=== PATIENT | female | born 1950 | race Caucasian/White ===

== ENCOUNTER 2023-10-06 17:47 | Inpatient (IN) | payer OTHER, SELFPAY ==
[2023-10-06 16:27] VITALS: BP 203/131
[2023-10-06 16:39] VITALS: BP 230/114
[2023-10-06 16:56] LABS: % Basophils 0.4 % (0-2); % Eosinophils 1.2 % (0-6); % Immature Granulocytes 0.5 % (0-0.5); % Lymphocytes 13.5 % (20.5-51.1); % Neutrophils 78.4 % (42.2-75.2); Absolute Eosinophils 0.1 10^3/uL (0-0.7); Absolute Immature Granulocytes 0.1 10^3/uL (0-0.05); Absolute Lymphocytes 1.4 10^3/uL (1.2-3.4); Absolute Monocytes 0.6 10^3/uL (0.1-0.6); Absolute Neutrophils 8.3 10^3/uL (1.4-6.5); Hematocrit 39.8 % (37.0-47.0); Hemoglobin 13.8 g/dL (12.0-16.0); Mean Corp Hgb Conc. 34.7 g/dL (33.0-37.0); Mean Corpuscular Hgb 29.2 pg (27.0-31.0); Mean Corpuscular Volume 84.1 fL (81.0-99.0); Mean Platelet Volume 9.6 fL (7.4-10.4); Nucleated Red Blood Cells % 0 %; Platelet Count 252 10^3/uL (130-400); Red Blood Cell Count 4.73 10^6/uL (4.20-5.40); Red Cell Dist. Width 13.1 % (11.5-14.5); White Blood Cell Count 10.6 10^3/uL (4.8-10.8)
--- NOTE | 2023-10-06 16:57 | ED.CVA ---
History of Present Illness
General
Chief Complaint: CVA/TIA Symptoms
Source: patient and spouse
Exam Limitations: none
Time Seen by Provider: 10/06/23 16:46
Onset of Stroke Symptoms
Onset of symptoms known: Yes
Date of onset of symptoms: 10/06/23
Time of onset of symptoms: 04:30
Travel History
Have you had any contact with someone who has COVID-19?: No
Do you have any symptoms of coronavirus? Fever > 100 degrees, chills, cough, shortness of breath, sore throat, loss of taste or smell, muscle aches, or headache?: No
History of Present Illness
History of Present Illness:
Patient noted incoordination to the right arm and leg and mild slurred speech at 4:30 AM. Persistent symptoms since then
Past History
Past History
ED Past Medical History: HTN and NIDDM
ED Past Surgical History: Orthopedic
Review of Systems
Review of Systems
All Other Systems: Not applicable
Constitutional: Denies fever
Respiratory: Reports no symptoms
Cardiac: Reports no symptoms
Phy Exam
Physical Exam
Physical Exam:
GENERAL: Alert and oriented in no apparent distress
EYE: Orbits normal.
NECK: Supple, no carotid bruit
ENT: Pharynx without erythema
CARDIAC: Regular rate and rhythm without any obvious murmurs.
LUNGS: Clear breath sounds,normal
ABDOMEN: Soft, without focal tenderness or distention
NEUROLOGICAL: Alert and oriented , minimal slurred speech although patient is a dentulous. No aphasia. Poor [id number] and poor [id number] on the right. No weakness. Light touch intact. Eye confrontation normal.
SKIN: Warm and dry, no rash or lesion, no discoloration, skin intact.
MUSCULOSKELETAL: No edema,no deformity.Good color
PSYCH: Normal and appropriate interaction.
Scores
NIH Stroke Score
Level of Consciousness: 0 - Alert
LOC Questions: 0-Answers both correctly
LOC Commands: 0-Performs both correctly
Best Horizontal Gaze: 0-Normal
Visual Rhodes: 0=Normal, no visual loss
Facial Palsy: 0=Normal, symmetrical
Motor - Right Arm: 0=No drift 10 seconds
Motor - Left Arm: 0=No drift 10 seconds
Motor - Right Le-No drift 5 seconds
Motor - Left Le-No drift 5 seconds
Limb Ataxia: 2-Present in two limbs
Sensation: 0-Normal
Best Language: 0-No aphasia
Dysarthria: 1-Mild slurring
Extinction and Inattention: 0-No abnormality
Total Score:: 3
Course
Orders/Labs/Results
Orders:
Orders
10/06/23 16:46
Complete Blood Count/With Diff Urgent
Comprehensive Metabolic Panel Urgent
10/06/23 16:54
Electrocardiogram (*1) Stat
Reason for Study: Other
Other Reason for Exam: neuro symptoms
CT Head W/o Iv Contrast Urgent
Comment:
Reason For Exam: 12 hours right sided incoordination
Cardiac Monitoring- Treatment ONCE
EKG- Treatment ONCE
10/06/23 17:22
Aspirin Chewable [Low Strength Aspirin] 324 mg PO NOW STA
Clopidogrel Bisulfate [Plavix] 75 mg PO NOW STA
10/06/23 17:38
Admit/Transfer Patient As Directed
Co-Sign Provider:
Level of Care: Inpatient admission
Assign to:: Telemetry
Physician / Group: bubba
Diagnosis: cva
Reason for Telemetry: Arrhythmia
Date to Stop Telemetry: 10/09/23
Time to Stop Telemetry: 11:00
Reason for Hospitalization: cva
Expected length of stay greater than two midnights?: Yes
ELOS- Estimated Length of Stay in days: 2
I certify the patient meets the requirements for IP care: Yes
10/06/23 17:39
Code Status As Directed
Resuscitation Status: Full Code
10/06/23 17:45
Enalaprilat [Vasotec] 0.625 mg IV Q6HPRN PRN
10/09/23 11:00
DC Protocol for Telemetry ONCE
Abnormal Lab Results
10/06/23
16:46
Abs Immat Gran (auto) 0.1 H 10^3/uL
(0-0.05)
Absolute Neuts (auto) 8.3 H 10^3/uL
(1.4-6.5)
Neutrophils % 78.4 H %
(42.2-75.2)
Lymphocytes % 13.5 L %
(20.5-51.1)
Sodium 133 L mmol/L
(135-145)
Chloride 94 L mmol/L
(98-107)
BUN 24 H mg/dl
(7-17)
Glucose 154 H mg/dl
(70-99)
Calcium 10.4 H mg/dl
(8.4-10.2)
AST 43 H U/L
(14-36)
10/06/23 16:46
10/06/23 16:46
Vital Signs
Initial and Last Documented VS:
Initial Vital Signs
Temp Pulse Resp BP Pulse Ox
99.1 F 76 18 203/131 98
10/06/23 16:27 10/06/23 16:27 10/06/23 16:27 10/06/23 16:27 10/06/23 16:27
Last Documented Vital Signs
Temp Pulse Resp BP Pulse Ox
99.1 F 74 15 193/87 96
10/06/23 16:27 10/06/23 18:30 10/06/23 18:30 10/06/23 17:47 10/06/23 18:30
*Pulse Oximetry
Patient hypoxic: no
*EKG
Interpreted by ED Provider?: Yes
Interpretation: abnormal
Comparison EKG: no changes
Heart Rate: 74
Rate: normal
Rhythm: sinus
[place]: normal axis
Interval: normal interval
QRS Pattern: left vent hypertrophy
Ischemia: non-specific ST changes
*Account Relationship Manager Interpretation
Rate: normal
Interpretation: normal
Heart Rate: 76
Rhythm: sinus
*Critical Care Note
Total Time (30-74mins, 75-104mins- exclusive of procedures): Not Applicable
Update Note
Update Note:
Discussed with neurology. NIH is 3. Clearly beyond the window for thrombolytics. With low NIH and timing no indication for CTA or thrombectomy. Aspirin Plavix per neurology and admit
ED Attending Note
-
Portions of this chart may have been created with voice recognition software.� Occasional wrong word or��sound alike� substitutions may have occurred due to the inherent limitations of voice recognition software.
Discharge Plan
Departure
Patient Disposition: Admit
Date of Disposition: 10/06/23
Time of Disposition: 17:21
Presentation/result/management discussed w/ accepting MD/DO: Neurology
Discharge Problem:
Subacute CVA, Hypertensive urgency
Interventions
Interventions:
*Risk Screen - Suicide Last Done: 10/06/23 16:27
*General Assessment Last Done: 10/06/23 16:27
*Neglect/Abuse Screening Last Done: 10/06/23 16:27
ED- Pulmonary Assessment Last Done: 10/06/23 17:01
ED- Neurological Assessment Last Done: 10/06/23 17:01
ED- Cardiac Assessment Last Done: 10/06/23 17:01
ED Swallowing Screen Last Done: 10/06/23 17:01
[2023-10-06 17:14] LABS: ALT (SGPT) 33 U/L (0-35); AST (SGOT) 43 U/L (14-36); Albumin 4.9 g/dl (3.5-5.0); Alkaline Phosphatase 83 U/L (38-126); Blood Urea Nitrogen 24 mg/dl (7-17); Calcium 10.4 mg/dl (8.4-10.2); Carbon Dioxide 28 mmol/L (22-30); Chloride 94 mmol/L (98-107); Glucose 154 mg/dl (70-99); Potassium 4.1 mmol/L (3.5-5.1); Sodium 133 mmol/L (135-145); Total Bilirubin 0.9 mg/dl (0.2-1.3); Total Protein 7.6 g/dl (6.3-8.2); eGFR > 60.00
[2023-10-06] MEDS: LOW STRENGTH ASPIRIN 324 MG PO (17:29)
[2023-10-06] MEDS: PLAVIX 75 MG PO (17:29)
[2023-10-06 17:47] VITALS: BP 193/87
--- NOTE | 2023-10-06 17:47 | HPS.HSE ---
Family Physician
-
Family Physician: NOT KNOW UNKNOWN - PT DOES
Chief Complaint
-
right sided weakness
History of Present Illness
73-year-old female past medical history of hypertension, diabetes, migraine with aura, osteoarthritis, osteoporosis, ADHD, alopecia, hepatitis C status posttreatment, remote tobacco use, presenting with right foot drop, right hand weakness and
numbness and difficulty speaking with some confusion around 4 AM this morning. Patient had appointment with primary care physician later who recommended she come to the emergency room.
Since then the symptoms have improved somewhat although she continues to have some weakness and numbness in the right hand. She denies any headache, blurry vision, vertigo, facial droop. She denies any history of strokes. She denies any cardiac
history.
Patient is apparently had blood pressure in the 180-200 systolic for years despite taking blood pressure medication.
Denies smoking alcohol or any drugs.
Medical History
Past Medical History
Past Medical History: Reports Other (hypertension, diabetes, migraine with aura, osteoarthritis, osteoporosis, ADHD, alopecia, hepatitis C status posttreatment, remote tobacco use,)
Past Surgical History: Reports Other (Left total knee arthroplasty,)
Social History
Tobacco: Non-smoker
Alcohol: None
Drug: None
Family History
Family History: Not pertinent
Allergies / Home Medications
Allergies reflects when Allergies were last updated in [facility].
Home Medications with original date entered in [facility]
Allergy/Medication List:
Allergies
Allergy/AdvReac Type Severity Reaction Status Date / Time
acetaminophen [From Tylenol] Allergy Nausea Verified 06/02/18 13:32
alendronate sodium Allergy dental Verified 06/02/18 13:32
problems
Home Medications
calcium citrate 315 mg calcium-vitamin D3 6.25 mcg (250 unit) tablet (Citracal + Vitamin D Maximum) 1,200 mg PO HS 04/22/17
multivitamin with folic acid 400 mcg tablet (Tab-A-Bryant) 1 tab PO Q48H 04/22/17
aspirin 325 mg tablet,delayed release 650 mg PO DAILY PRN mild pain 10/06/23
latanoprost 0.005 % eye drops 1 drp BOTH EYES HS 10/06/23
prochlorperazine maleate 10 mg tablet 10 mg PO TID PRN nausea 10/06/23
propranolol 120 mg capsule,24 hr,extended release 120 mg PO HS 10/06/23
Review of Systems
-
History Source: Patient
A 12 point ROS was completed and negative except as noted: Yes
Constitutional: Reports No Symptoms
EENT: Reports No Symptoms
Respiratory: Reports No Symptoms
Cardiac: Reports No Symptoms
Abdomen/GI: Reports No Symptoms
: Reports No Symptoms
Musculoskeletal: Reports No Symptoms
Skin: Reports No Symptoms
Neurological: Reports See HPI
Endocrine: Reports No Symptoms
Hematologic/Lymphatic: Reports No Symptoms
Psych: Reports No Symptoms
Physical Exam
Vital Signs
Vital Signs
Temp Pulse Resp BP Pulse Ox
99.1 F 81 14 230/114 95
10/06/23 16:27 10/06/23 17:30 10/06/23 17:30 10/06/23 16:39 10/06/23 17:30
Physical Exam
General: Well Developed, Well Nourished and No Apparent Distress
HEENT: NormoCephalic, Moist mucous membranes and Atraumatic
Respiratory: Clear
Cardiac: S1/S2 and Regular Rhythm; No Murmur or Rub
GI: Soft, Non Tender, Non Distended and Normal Bowel Sounds; No Organomegaly
Rectal: Deferred by Provider
Musculoskeletal: No Clubbing, No Cyanosis and No Edema
Skin: No Rash
Neuro: Nonfocal/grossly intact
Laboratory Results
-
10/06/23 16:46
10/06/23 16:46
Laboratory Results
Total Bilirubin 0.9 mg/dl (0.2-1.3) 10/06/23 16:46
AST 43 U/L (14-36) H 10/06/23 16:46
ALT 33 U/L (0-35) 10/06/23 16:46
Alkaline Phosphatase 83 U/L (38-126) 10/06/23 16:46
Data Reviewed
-
Lab Data: Labs Reviewed by me
Old Records: Reviewed
Impression/Plan
-
IMPRESSION:
PLAN:
# Acute CVA secondary to untreated hypertension
-NIH of 3
-CT head shows 2 small foci of suspect ischemic left dominant left internal capsule, age-indeterminate but potentially acute/subacute
-Aspirin and Plavix
-Check MRI/MRA head and neck
-Check A1c and lipid panel
-Start atorvastatin 40 mg
-Permissive hypertension for 24 hours until tomorrow morning to keep blood pressure below 220/120
-Check echo
-Neurology consulted
-PT/OT/speech therapy
# Hypertensive urgency
-Systolic blood pressure of 230/114
-Permissive hypertension but require slight reduction in blood pressure, IV enalapril as needed
-EKG shows normal sinus rhythm, LVH
-Continue propranolol
Type 2 diabetes
History of migraines
History of vertigo
Osteoarthritis
Osteoporosis
-Continue calcium, vitamin D
ADHD
Alopecia
History of hepatitis C status posttreatment
Remote tobacco use
Full code
DVT prophylaxis�SCDs
Diabetic diet
[2023-10-06 20:47] VITALS: BP 227/112
[2023-10-06 22:00] VITALS: BP 199/93
[2023-10-06 22:13] VITALS: BMI 26.5
[2023-10-06] MEDS: LIPITOR 40 MG PO (22:43)
[2023-10-06] MEDS: INDERAL LA 120 MG PO (22:43)
[2023-10-06] MEDS: THERAGRAN 1 TABLET PO (22:43)
[2023-10-06] MEDS: XALATAN OPHTHALMIC SOLUTION 1 DROP BOTH EYES (22:44)
[2023-10-06 23:00] VITALS: BP 196/97
[2023-10-07] VITALS (11 sets, daily range): BP systolic 131–229; BP diastolic 70–128; PULSE 61; O2SAT 96; BMI 23.3
[2023-10-07] MEDS: MELATONIN 5 MG PO ×2 (00:15→20:27)
[2023-10-07] MEDS: VASOTEC 0.625 MG IV (01:54)
[2023-10-07 07:31] LABS: % Basophils 0.3 % (0-2); % Eosinophils 1.8 % (0-6); % Immature Granulocytes 0.3 % (0-0.5); % Lymphocytes 23.5 % (20.5-51.1); % Neutrophils 65.1 % (42.2-75.2); Absolute Eosinophils 0.1 10^3/uL (0-0.7); Absolute Lymphocytes 1.6 10^3/uL (1.2-3.4); Absolute Monocytes 0.6 10^3/uL (0.1-0.6); Absolute Neutrophils 4.3 10^3/uL (1.4-6.5); Hematocrit 37.3 % (37.0-47.0); Hemoglobin 13.1 g/dL (12.0-16.0); Mean Corp Hgb Conc. 35.1 g/dL (33.0-37.0); Mean Corpuscular Hgb 29.9 pg (27.0-31.0); Mean Corpuscular Volume 85.2 fL (81.0-99.0); Nucleated Red Blood Cells % 0 %; Red Blood Cell Count 4.38 10^6/uL (4.20-5.40); White Blood Cell Count 6.6 10^3/uL (4.8-10.8)
[2023-10-07 07:44] LABS: Blood Urea Nitrogen 25 mg/dl (7-17); Carbon Dioxide 29 mmol/L (22-30); Chloride 96 mmol/L (98-107); Estimated Creatinine Clearance 51 ml/min; Glucose 114 mg/dl (70-99); HDL Cholesterol 88 mg/dl; LDL Cholesterol, Calculated 138 mg/dl; Potassium 3.9 mmol/L (3.5-5.1); Sodium 134 mmol/L (135-145); Total Cholesterol 238 mg/dl (50-199); Triglyceride 62 mg/dl (10-149); Very Low Density Lipoprotein 12 mg/dl (0-30); eGFR > 60.00
[2023-10-07] MEDS: LOW STRENGTH ASPIRIN 81 MG PO (08:00)
[2023-10-07] MEDS: PLAVIX 75 MG PO (08:00)
[2023-10-07 08:27] LABS: Platelet Count 191 10^3/uL (130-400)
--- NOTE | 2023-10-07 11:08 | W.PN.HOSP.TC ---
Today's Communication/Plan
-
await MRI
monitor BP
Monitor on tele
start metformin
asa/plavix
Assessment / Plan
Assessment / Plan
# Acute/subacute CVA secondary to untreated hypertension
-CT head shows 2 small foci of suspect ischemic left dominant left internal capsule, age-indeterminate but potentially acute/subacute
-Aspirin and Plavix
-Check MRI/MRA head and neck
-TC at 238 with elevated LDL-Started on statin
-A1C at 7 and start metformin.
-Start atorvastatin 40 mg
-s/p Permissive hypertension and BP trended down
-Check echo
-Neurology consulted
-PT/OT/speech therapy
# Hypertensive emergency
-Systolic blood pressure of 230/114
-EKG shows normal sinus rhythm, LVH
-Continue propranolol
-BP am 131/80.
-Start additional meds if needed.
#Type 2 diabetes
-A1C of 7.
-ADA, Iss and accuchecks
-start metformin
History of migraines
History of vertigo
Osteoarthritis
Osteoporosis
-Continue calcium, vitamin D
ADHD
Alopecia
History of hepatitis C status posttreatment
Remote tobacco use
Full code
DVT prophylaxis�SCDs
Diabetic diet
Anticipated Discharge: 24 - 48 hours
Subjective/Interval History
-
Date of Service: October 07, 2023
States of difficulty with R hand-not able to write properly
no headache or neck pain or vision problems
difficulty with sole conditioner on R hand
no numbing/tingling/decrease sensation
Objective Data
-
Labs:
Laboratory Results
10/07/23
06:35
WBC 6.6
Hgb 13.1
Hct 37.3
Plt Count 191 D
Sodium 134 L
Potassium 3.9
Chloride 96 L
Carbon Dioxide 29
BUN 25 H
Creatinine 0.9
Glucose 114 H
Calcium 10.0
Vital Signs:
Vital Signs
Temp Pulse Resp BP Pulse Ox
97.4 F 54 16 131/80 93
10/07/23 07:05 10/07/23 07:05 10/07/23 07:05 10/07/23 07:05 10/07/23 07:05
I&O
10/06/23 10/07/23 10/08/23
06:59 06:59 06:59
Intake Total 480 / 480
Balance 480 / 480
Physical Exam
-
General: Well Developed and No Apparent Distress
HEENT: Normocephalic, Atraumatic and Moist Mucous Membranes
Respiratory: Clear to Auscultation
Cardiac: Regular Rhythm and S1/S2; Negative Murmur, Rub or Gallop
GI: Soft, Nontender, Nondistended and Normal Bowel Sounds; Negative Organomegaly
Rectal: Deferred by Provider
Musculoskeletal: No Clubbing, No Cyanosis and No Edema
Skin: Negative Rash
Neuro: Awake, Alert, Oriented, AO x 3 and Nonfocal/Grossly Intact
Psych: Calm
Data Reviewed
-
Total Time Spent with Patient (in minutes): 55
[2023-10-07 11:52] LABS: Glucose - Point of Care 229 mg/dl (70-99)
[2023-10-07] MEDS: NOVOLOG FLEXPEN-LOW RESISTANCE 2 UNITS SC (14:02)
--- NOTE | 2023-10-07 14:27 | PTOTSP ---
SPEECH THERAPY SWALLOW EVALUATION:
Clinical signs of oropharyngeal dysphagia, likely acute related to acute CVA with Right sided weakness. Recommend IDDSI Level 6 Soft and Bite sized diet and thin liquids. Medications whole with liquid, one at a time. Aspiration precautions
including: upright positioning; small sips/bites; chew on left as able; finger/lingual sweep; check for pocketing on Right; alternate solids/liquids. Speech therapy to follow, assess diet tolerance and modify as appropriate, provide continued
education regarding aspiration risks/precautions and safe swallow strategies, perform comprehensive speech/language/cognitive communication evaluation, and complete diagnostic swallow therapy as appropriate.
RECOMMEND:
1) IDDSI Level 6 Soft and Bite sized diet and thin liquids
2) Medications whole with liquid, one at a time
3) Aspiration precautions including: upright positioning; small sips/bites; chew on left as able; finger/lingual sweep; check for pocketing on Right; alternate solids/liquids
4) Speech therapy to follow, assess diet tolerance and modify as appropriate, provide continued education regarding aspiration risks/precautions and safe swallow strategies, perform comprehensive speech/language/cognitive communication evaluation,
and complete diagnostic swallow therapy as appropriate
--- NOTE | 2023-10-07 14:39 | CON.NEURO4 ---
Addendum entered and electronically signed by Joe Franco MD 10/07/23 15:34:
Studies reviewed.
I have personally examined the patient. I reviewed and agree with the DIRECT SERVICE PROVIDER's Note.
My addenda:
Awake, alert, interactive. No acute distress.
Speech intact.
Follows 2-step requests w/o difficulty. No tremor.
Extra-ocular movements grossly intact.
Facial movements full and symmetric. Hearing intact to normal conversational volume.
Normal UE movements bilaterally.
Neck: full ROM.
Chest: no dyspnea
Heart: no JVD
Ext: (-) Clubbing, (-) Cyanosis, (-) Edema
IMPRESSIONS/RECOMMENDATIONS:
Abrupt onset of right hand discoordination
Due to left thalamic acute ischemic stroke which may have also been facilitated by accelerated hypertension
21 days of dual antiplatelet therapy with a combination of aspirin grams daily and clopidogrel 75 mg daily. The patient may eyes only aspirin after that timeframe
Provide atorvastatin 80 mg daily due to elevated LDL greater than 70
Goal of normotension
Goal of normoglycemia
D/W patient
Will continue to follow as outpatient.
Original Note:
Documented by User: Katia Boston NP 10/07/23 15:13
Consultation - Neurology 4
-
CONSULTING PHYSICIAN: Joe Franco MD
REFERRING PHYSICIAN: Hospitalists/Dr. Whittaker
DICTATED BY: SUSY Xie
DATE/TIME OF REQUEST: 10/06/23
DATE/TIME OF CONSULTATION: 10/07/23
Reason for Consultation: CVA
History of Present Illness:
This is a 73-year-old right-handed female who has presented to the hospital with report of right hand weakness, right foot heaviness, slurred speech, and a weird sensation in her head. Patient reports feeling in her usual state two nights ago
(10/05/23) when she went to bed a midnight. At 0400 yesterday (10/06/23), she reports feeling a strange 'motion' in her head that awoke her from sleep and upon walking to the bathroom noticed that her right foot was dragging and her right hand felt
week. She fell back asleep until 1000 and noted that her symptoms were persistent. She kept dropping things from her right hand and her noted that her right face appeared droopy and her speech was slightly slurred. She was scheduled for a
routine outpatient appointment with her PCP, who then instructed her to come to the ER for evaluation. NIHSS was 3 in the ER. BP 228/106. CT head was obtained on arrival and is suggestive of a left thalamic/internal capsule ischemic infarct in
addition to a chronic right periventricular [place] radiata infarct. She was not a candidate for TNK/IAT due to being outside of the time window/NIHSS was <6. She was loaded with aspirin and provided Plavix 75mg in the ER. Currently, she reports
ongoing right riding coach weakness and right foot heaviness. She also notes that her right eye distance vision appears slightly more blurry since yesterday. She denies any headache, dizziness, speech/swallow difficulty, nausea, numbness, chest pain,
palpitations, and shortness of breath. She denies any known history of TIA, stroke, or events like this in the past. She does endorse a history of migraine with aura associated with some peripheral vision loss for decades. She was taking aspirin PRN
pain but not on a daily basis.
Past Medical History: HTN, HLD, NIDDM, migraine with aura, osteoarthritis, osteoporosis, ADHD, alopecia, hepatitis C, depression, cervical dysplasia, right index finger trauma, Lyme
Surgical History: B/L knee arthroplasty, D&C, removal of right hip mass, microsurgery R index finger
Family History: Reviewed and noncontributory.
Social History: Former smoker. Denies alcohol and illicit drug use.
Allergies: Acetaminophen, alendronate sodium.
Home Medications: See below.
Review of Symptoms:
Patient denies any fever, headache, chest pain, shortness of breath, GI or symptoms.
�Per the HPI.�All systems are reviewed negative except above.
Physical Exam:
The patient is afebrile, abdomen is nondistended, breathing is unlabored, skin is warm and dry, no edema.
NIH Stroke Scale:
I performed the NIH stroke scale on the patient on 10/07/23 at 1000. The patient scored 3 points on the NIH stroke scale assessment, which were assigned as follows: See below.
Neurologic Examination:
The patient is awake, alert and oriented x 3. She is able to follow commands and answer questions appropriately. There is no aphasia or dysarthria. On cranial nerve assessment, pupils are 3 mm bilateral, round and reactive to light and
accommodation. Visual rhodes are full. Extraocular movements are intact. Facial sensations are intact and bilaterally symmetrical, there is no facial asymmetry. Hearing is intact bilaterally to normal conversation volume. Tongue palate and uvula are
midline. Sternocleidomastoid strengths are full bilaterally. Motor strengths are 5/5 bilateral upper and lower extremities on medical research Ruby scale. There is no drift or involuntary movement noted. Deep tendon reflexes are 2+ bilateral
upper and lower extremities and Babinski is absent bilaterally. Sensations of pain, touch, temperature and vibration are intact and bilaterally symmetrical. There was no extinction noted on double simultaneous stimulation. Coordination is intact by
finger to nose bilaterally.
Lab Results: See below.
Neuro Imaging:
1. CT head 10/06/23: Two small foci of suspected ischemia in the left thalamus and left internal capsule, age indeterminate but potentially acute or subacute. Chronic lacunar infarct in the right periventricular [place] radiata.
2. MRI brain 10/07/23: final read pending.
3. MRA Neck/Head 10/07/23: No significant carotid plaque formation or hemodynamically significant stenosis, bilaterally. No evidence to suggest thrombotic occlusion of the cerebral arteries. Right MCA inferior terminal branch with proximal tapering.
This may be developmental in nature. Left MCA inferior terminal branch with short segment focal high-grade stenosis. No [place] of [place] region aneurysm.
Differentials for the patient's presentation include:
1. Acute left thalamic ischemic infarct per preliminary MRI brain review; etiology likely small vessel disease.
2. Chronic lacunar infarct in the right periventricular [place] radiata.
3. Hypertensive urgency.
4. New diagnosis NIDDM.
5. HLD.
6. Migraine with aura.
Patient has the following risk factors for their symptoms: HTN, HLD, NIDDM, old stroke
IV Tenecteplase/IAT candidacy: She was not a candidate for TNK/IAT due to being outside of the time window/NIHSS was <6.
Recommendations:
-Continue DAPT with aspirin 81mg and Plavix 75mg daily for 21 days. After 21 days, discontinue Plavis and continue aspirin 81mg daily only, indefinitely.
-Goal normotension
-MRI brain final read pending.
-LDL goal <70. LDL is 138.
-Goal normoglycemia, hbA1c is 7.0.
-NIHSS and neurological checks per unit guidelines.
-Provide patient with a stroke education packet.
-PT/OT/ST evaluations.
-DVT prophylaxis.
-Patient needs to follow-up with Neurology as an outpatient, may see the DIRECT SERVICE PROVIDER or one of the physicians.
Discussed patient care with: Dr. Franco, the patient
NIH Stroke Score
Subsequent NIH Scale
Date of Subsequent NIH Scale: 10/07/23
Time of Subsequent NIH Scale: 10:00
NIH Stroke Score
Level of Consciousness: 0 - Alert
LOC Questions: 0-Answers both correctly
LOC Commands: 0-Performs both correctly
Best Horizontal Gaze: 0-Normal
Visual [place]: 0=Normal, no visual loss
Facial Palsy: 0=Normal, symmetrical
Motor - Right Arm: 0=No drift 10 seconds
Motor - Left Arm: 0=No drift 10 seconds
Motor - Right Le-Drift < 5 seconds
Motor - Left Le-No drift 5 seconds
Limb Ataxia: 1-Present in one limb
Sensation: 0-Normal
Best Language: 0-No aphasia
Dysarthria: 1-Mild slurring
Extinction and Inattention: 0-No abnormality
Total Score:: 3
Modified [place] (mRS) Score
Modified [place] Scale (mRS): Slight disability. Able to look after own affairs.
Score: 2
Vital Signs and Labs
-
Vital Signs and Labs:
Vital Signs
Temp Pulse Resp BP Pulse Ox
97.3 F 62 18 185/99 96
10/07/23 11:30 10/07/23 11:30 10/07/23 11:30 10/07/23 11:30 10/07/23 11:30
Lab Results
10/07/23 06:35
10/07/23 06:35
Sodium 134 mmol/L (135-145) L 10/07/23 06:35
Potassium 3.9 mmol/L (3.5-5.1) 10/07/23 06:35
BUN 25 mg/dl (7-17) H 10/07/23 06:35
Glucose 114 mg/dl (70-99) H 10/07/23 06:35
Calcium 10.0 mg/dl (8.4-10.2) 10/07/23 06:35
LDL Cholesterol, Calc 138 mg/dl 10/07/23 06:35
Medications
-
Active Medications
Generic Name Dose Route Start Last Admin
Trade Name Freq PRN Reason Stop Dose Admin
Acetaminophen 650 mg 10/06/23 22:00
Acetaminophen 650 Mg Rectal Suppository RECTAL 11/03/23 21:59
Q4HPRN PRN
RAMOS, mild pain, or temp >100.4F
Acetaminophen 650 mg 10/06/23 22:00
Acetaminophen 325 Mg Tablet PO 11/03/23 21:59
Q4HPRN PRN
RAMOS, mild pain, or temp >100.4F
Aspirin 81 mg 10/07/23 08:00 10/07/23 08:00
Aspirin 81 Mg Chewable Tablet PO 11/04/23 07:59 81 mg
DAILY FABY Administration
Atorvastatin Calcium 40 mg 10/06/23 22:00 10/06/23 22:43
Atorvastatin (Lipitor) 40 Mg Tablet PO 11/03/23 21:59 40 mg
QPM FABY Administration
Calcium/Vitamin D 1,000 mg 10/07/23 22:00
Calcium Carbonate 500 Mg/Vitamin D 5 Mcg (200 Units) Tablet PO 11/04/23 21:59
HS FABY
Clopidogrel Bisulfate 75 mg 10/07/23 08:00 10/07/23 08:00
Clopidogrel 75 Mg Tablet PO 11/04/23 07:59 75 mg
DAILY FABY Administration
Dextrose 12.5 grams 10/07/23 10:18
Dextrose 50% (0.5 Grams/Ml) 50 Ml Syringe IV 11/04/23 10:17
[id number] PRN
hypoglycemia
Protocol
Enalaprilat 0.625 mg 10/06/23 17:45 10/07/23 01:54
Enalaprilat 1.25 Mg/Ml Vial IV 11/03/23 17:44 0.625 mg
Q6HPRN PRN Administration
BP > 220/120
Glucagon 1 mg 10/07/23 10:18
Glucagon 1 Mg Vial IM 11/04/23 10:17
PRN PRN
hypoglycemia
Protocol
Insulin Aspart 0 units 10/07/23 11:30 10/07/23 14:02
Insulin Aspart Low Resistance 300 Units/3 Ml Pen.Injctr SC 11/04/23 11:29 2 units
AC FABY Administration
Protocol
Latanoprost 0 drop 10/06/23 22:00 10/06/23 22:44
Latanoprost 0.005% (Ophthalmic Solution) 2.5 Ml Bottle BOTH EYES 11/03/23 21:59 1 drop
HS FABY Administration
Melatonin 5 mg 10/07/23 22:00
Melatonin 5 Mg Tablet PO 11/04/23 21:59
HS FABY
Metformin HCl 500 mg 10/07/23 17:00
Metformin 500 Mg Regular Release Tablet PO 11/04/23 16:59
BID@0800,1700 FABY
Multivitamins Therapeutic 1 tablet 10/06/23 22:00 10/06/23 22:43
Multivitamin Tablet PO 11/03/23 21:59 1 tablet
Q48H FABY Administration
Prochlorperazine Maleate 10 mg 10/06/23 22:00
Prochlorperazine 10 Mg Tablet PO 11/03/23 21:59
TIDPRN PRN
nausea
Propranolol HCl 120 mg 10/06/23 22:00 10/06/23 22:43
Propranolol Extended Release 120 Mg Capsule (24hr) PO 11/03/23 21:59 120 mg
HS FABY Administration
Sodium Chloride 0 flush 10/06/23 18:00
Sodium Chloride 0.9% (Flush) Syringe IV 11/03/23 17:59
PER PROTOCOL FABY
Home Medications
Medication Instructions Recorded
calcium citrate 315 mg 1,200 mg PO HS Supplement 04/22/17
calcium-vitamin D3 6.25 mcg (250
unit) tablet (Citracal + Vitamin D
Maximum)
multivitamin with folic acid 400 1 tab PO Q48H Supplement 04/22/17
mcg tablet (Tab-A-Bryant)
aspirin 325 mg tablet,delayed 650 mg PO DAILY PRN mild pain 10/06/23
release
latanoprost 0.005 % eye drops 1 drp BOTH EYES HS Eye Condition 10/06/23
prochlorperazine maleate 10 mg 10 mg PO TID PRN nausea 10/06/23
tablet
propranolol 120 mg capsule,24 120 mg PO HS Blood Pressure 10/06/23
hr,extended release

Documented by User: Joe Franco MD 10/07/23 15:28
Consultation - Neurology 4
-
CONSULTING PHYSICIAN: Joe Franco MD
REFERRING PHYSICIAN: Hospitalists/Dr. Whittaker
DICTATED BY: SUSY Xie
DATE/TIME OF REQUEST: 10/06/23
DATE/TIME OF CONSULTATION: 10/07/23
Reason for Consultation: CVA
History of Present Illness:
This is a 73-year-old right-handed female who has presented to the hospital with report of right hand weakness, right foot heaviness, slurred speech, and a weird sensation in her head. Patient reports feeling in her usual state two nights ago
(10/05/23) when she went to bed a midnight. At 0400 yesterday (10/06/23), she reports feeling a strange 'motion' in her head that awoke her from sleep and upon walking to the bathroom noticed that her right foot was dragging and her right hand felt
week. She fell back asleep until 1000 and noted that her symptoms were persistent. She kept dropping things from her right hand and her noted that her right face appeared droopy and her speech was slightly slurred. She was scheduled for a
routine outpatient appointment with her PCP, who then instructed her to come to the ER for evaluation. NIHSS was 3 in the ER. BP 228/106. CT head was obtained on arrival and is suggestive of a left thalamic/internal capsule ischemic infarct in
addition to a chronic right periventricular [place] radiata infarct. She was not a candidate for TNK/IAT due to being outside of the time window/NIHSS was <6. She was loaded with aspirin and provided Plavix 75mg in the ER. Currently, she reports
ongoing right riding coach weakness and right foot heaviness. She also notes that her right eye distance vision appears slightly more blurry since yesterday. She denies any headache, dizziness, speech/swallow difficulty, nausea, numbness, chest pain,
palpitations, and shortness of breath. She denies any known history of TIA, stroke, or events like this in the past. She does endorse a history of migraine with aura associated with some peripheral vision loss for decades. She was taking aspirin PRN
pain but not on a daily basis.
Past Medical History: HTN, HLD, NIDDM, migraine with aura, osteoarthritis, osteoporosis, ADHD, alopecia, hepatitis C, depression, cervical dysplasia, right index finger trauma, Lyme
Surgical History: B/L knee arthroplasty, D&C, removal of right hip mass, microsurgery R index finger
Family History: Reviewed and noncontributory.
Social History: Former smoker. Denies alcohol and illicit drug use.
Allergies: Acetaminophen, alendronate sodium.
Home Medications: See below.
Review of Symptoms:
Patient denies any fever, headache, chest pain, shortness of breath, GI or symptoms.
�Per the HPI.�All systems are reviewed negative except above.
Physical Exam:
The patient is afebrile, abdomen is nondistended, breathing is unlabored, skin is warm and dry, no edema.
NIH Stroke Scale:
I performed the NIH stroke scale on the patient on 10/07/23 at 1000. The patient scored 3 points on the NIH stroke scale assessment, which were assigned as follows: See below.
Neurologic Examination:
The patient is awake, alert and oriented x 3. She is able to follow commands and answer questions appropriately. There is no aphasia or dysarthria. On cranial nerve assessment, pupils are 3 mm bilateral, round and reactive to light and
accommodation. Visual rhodes are full. Extraocular movements are intact. Facial sensations are intact and bilaterally symmetrical, there is no facial asymmetry. Hearing is intact bilaterally to normal conversation volume. Tongue palate and uvula are
midline. Sternocleidomastoid strengths are full bilaterally. Motor strengths are 5/5 bilateral upper and lower extremities on medical research Ruby scale. There is no drift or involuntary movement noted. Deep tendon reflexes are 2+ bilateral
upper and lower extremities and Babinski is absent bilaterally. Sensations of touch, temperature are intact and bilaterally symmetrical. There was no extinction noted on double simultaneous stimulation. Coordination is intact by finger to nose
bilaterally.
Lab Results: See below.
Neuro Imaging:
1. CT head 10/06/23: Two small foci of suspected ischemia in the left thalamus and left internal capsule, age indeterminate but potentially acute or subacute. Chronic lacunar infarct in the right periventricular [place] radiata.
2. MRI brain 10/07/23: final read pending.
3. MRA Neck/Head 10/07/23: No significant carotid plaque formation or hemodynamically significant stenosis, bilaterally. No evidence to suggest thrombotic occlusion of the cerebral arteries. Right MCA inferior terminal branch with proximal tapering.
This may be developmental in nature. Left MCA inferior terminal branch with short segment focal high-grade stenosis. No [place] of [place] region aneurysm.
Differentials for the patient's presentation include:
1. Acute left thalamic ischemic infarct per preliminary MRI brain review; etiology likely small vessel disease.
2. Chronic lacunar infarct in the right periventricular [place] radiata.
3. Hypertensive urgency.
4. New diagnosis NIDDM.
5. HLD.
6. Migraine with aura.
Patient has the following risk factors for their symptoms: HTN, HLD, NIDDM, old stroke
IV Tenecteplase/IAT candidacy: She was not a candidate for TNK/IAT due to being outside of the time window/NIHSS was <6.
Recommendations:
-Continue DAPT with aspirin 81mg and Plavix 75mg daily for 21 days. After 21 days, discontinue Plavis and continue aspirin 81mg daily only, indefinitely.
-Goal normotension
-MRI brain final read pending.
-LDL goal <70. LDL is 138.
-Goal normoglycemia, hbA1c is 7.0.
-NIHSS and neurological checks per unit guidelines.
-Provide patient with a stroke education packet.
-PT/OT/ST evaluations.
-DVT prophylaxis.
-Patient needs to follow-up with Neurology as an outpatient, may see the DIRECT SERVICE PROVIDER or one of the physicians.
Discussed patient care with: Dr. Franco, the patient
NIH Stroke Score
NIH Stroke Score
Total Score:: 3
Modified [place] (mRS) Score
Score: 2
[2023-10-07 17:10] LABS: Glucose - Point of Care 98 mg/dl (70-99)
[2023-10-07] MEDS: NOVOLOG FLEXPEN-LOW RESISTANCE SC (17:18)
[2023-10-07] MEDS: LIPITOR 80 MG PO (17:19)
[2023-10-07] MEDS: GLUCOPHAGE 500 MG PO (17:19)
[2023-10-07] MEDS: OSCAL 500 + D 1000 MG PO (20:26)
[2023-10-07] MEDS: COZAAR 25 MG PO (20:27)
[2023-10-07] MEDS: INDERAL LA 120 MG PO (20:28)
[2023-10-07] MEDS: XALATAN OPHTHALMIC SOLUTION 1 DROP BOTH EYES (20:33)
[2023-10-07 21:45] LABS: Glucose - Point of Care 103 mg/dl (70-99)
[2023-10-08] VITALS (10 sets, daily range): BP systolic 123–190; BP diastolic 70–92; PULSE 51–64; O2SAT 95–97; BMI 23.4
[2023-10-08] MEDS: APRESOLINE 5 MG IV (05:04)
[2023-10-08 07:57] LABS: Glucose - Point of Care 104 mg/dl (70-99)
[2023-10-08] MEDS: NOVOLOG FLEXPEN-LOW RESISTANCE SC ×3 (08:07→17:40)
[2023-10-08] MEDS: GLUCOPHAGE 500 MG PO ×2 (08:08→17:41)
[2023-10-08] MEDS: LOW STRENGTH ASPIRIN 81 MG PO (08:09)
[2023-10-08] MEDS: PLAVIX 75 MG PO (08:09)
[2023-10-08] MEDS: COZAAR 25 MG PO (08:09)
--- NOTE | 2023-10-08 08:10 | W.PN.NEURO.1 ---
Addendum entered and electronically signed by Rell Lennon MD 10/08/23 11:37:
I saw and evaluated the patient I reviewed the note by Katia Leiva agree with the findings with the following comments:
73-year-old woman with a past medical history of hypertension, newly diagnosed diabetes, hyper side of right hand weakness right foot heaviness slurred speech
Neurologic examination shows some ataxia and incoordination of the right hand especially with fine finger movements and grasping a cup using utensils, minor amount of right arm downward drift.
MRI brain demonstrates an acute stroke in the left thalamus
MRA of the head neck shows no significant carotid stenosis, hypoplastic left vertebral artery, bilateral circulation more on the right than the left.
Asymptomatic intracranial stenosis is noted on the left MCA as well as right MCA.
Stroke etiology is presumed due to small vessel disease given characteristic location in the thalamus and significant vascular risk factors with hypertension diabetes and hyperlipidemia
Recommendations
-Discussed importance of working on diet and hypertension and diabetes control for risk factor control and stroke prevention
-DAPT therapy aspirin and Plavix for 21 days then stop Plavix and continue on aspirin
-Continue the new atorvastatin 80 mg daily
-Recommended the patient that she not drive until seen in the neurology clinic in 4 to 6 weeks she endorsed understanding and would be okay with her driving her
-Do not feel patient requires outpatient cardiac monitoring given the stroke does not appear cardioembolic
No barriers to discharge from my standpoint we will sign off
Original Note:
Documented by User: Katia Boston NP 10/08/23 10:51
Today's Communication / Plan
-
.
Neuro Assessment/Plan
Assessment
This is a 73-year-old right-handed female who has presented to on 10/06/23 with report of right hand weakness, right foot heaviness, slurred speech, and a weird sensation in her head.�
-CT head 10/06/23: Two small foci of suspected ischemia in the left thalamus and left internal capsule, age indeterminate but potentially acute or subacute. Chronic lacunar infarct in the right periventricular [place] radiata.
-MRI brain 10/07/23: 9 mm acute left thalamic infarct. No associated mass effect. Other small chronic lacunar infarcts, as described. Minimal chronic white matter senescent changes. Tiny foci of susceptibility, consistent with hemosiderin as a result
of remote microhemorrhage, which may be seen in hemorrhagic lacunar infarct or amyloid angiopathy.
-MRA Neck/Head 10/07/23: No significant carotid plaque formation or hemodynamically significant stenosis, bilaterally. No evidence to suggest thrombotic occlusion of the cerebral arteries. Right MCA inferior terminal branch with proximal tapering.
This may be developmental in nature. Left MCA inferior terminal branch with short segment focal high-grade stenosis. No che[place] of [place] region aneurysm.
-TTE 10/07/23: Normal left ventricular chamber size. Normal left ventricular systolic function. Left ventricular ejection fraction is 60-65% by volumetric�assessment.� Normal regional wall motion. Moderate concentric left ventricular�hypertrophy.
Stage I diastolic dysfunction suggestive of abnormal relaxation. Normal right ventricular size and function. Indexed LA volume is mildly abnormal (35-41 mL/m2).
I.� � Acute left thalamic ischemic infarct. Etiology likely small vessel disease.
II.� � Chronic lacunar infarct in the right periventricular toledo radiata.
III.� � Hypertensive urgency.
IV.� � New diagnosis NIDDM.
V.� � HLD.
.� � Migraine with aura.
Plan
-Continue DAPT with aspirin 81mg and Plavix 75mg daily for 21 days. After 21 days, discontinue Plavis and continue aspirin 81mg daily only, indefinitely.
-Goal normotension.
-LDL goal <70. LDL is 138. Continue newly initiated atorvastatin 80mg daily.
-Goal normoglycemia, hbA1c is 7.0. childhood teacher consult placed as this is a new diagnosis.
-NIHSS and neurological checks per unit guidelines.
-Provide patient with a stroke education packet.
-PT/OT/ST evaluations.
-DVT prophylaxis.
-Consider outpatient Cardiology follow-up regarding hypertension and abnormal TTE findings.
-Patient needs to follow-up with Neurology as an outpatient, may see the [employer] or one of the physicians.
Subjective/Objective
Subjective Data
Date of Service: October 08, 2023
No acute events overnight. Patient reports ongoing coordination issues in her right hand and foot, mild decreased sensation in her RLE, right eye blurry vision, slurred speech, and a mild left headache. She reports that the PRN hydralazine dose she
got this morning exacerbated her symptoms and made her feel more off-balance.
Objective Data
Vital Signs
Temp Pulse Resp BP Pulse Ox
97.6 F 52 16 153/76 98
10/08/23 07:00 10/08/23 07:00 10/08/23 07:00 10/08/23 07:00 10/08/23 07:00
Lab Results
10/07/23 06:35
10/07/23 06:35
Sodium 134 mmol/L (135-145) L 10/07/23 06:35
Potassium 3.9 mmol/L (3.5-5.1) 10/07/23 06:35
BUN 25 mg/dl (7-17) H 10/07/23 06:35
Glucose 114 mg/dl (70-99) H 10/07/23 06:35
Calcium 10.0 mg/dl (8.4-10.2) 10/07/23 06:35
LDL Cholesterol, Calc 138 mg/dl 10/07/23 06:35
Patient Allergies
acetaminophen [From Tylenol] Allergy (Verified 06/02/18 13:32)
Nausea
alendronate sodium Allergy (Verified 06/02/18 13:32)
dental problems
LDL Level: >70, statin ordered
Review of Systems
-
History Source: Patient
EENT: Blurry Vision; Negative Decreased Vision
Respiratory: Negative Cough or Trouble Breathing
Cardiac: Negative Chest Pain or Palpitations
Abdomen/GI: Negative Nausea
Neuro: Headache, Numbness, Ataxia and Speech Problem; Negative Dizzy, Weakness or Tremors
Physical Exam
-
General: Well Developed, Well Nourished and No Apparent Distress
Eyes: No Ptosis and PERRLA
HEENT: Normocephalic and Atraumatic
Neck: Full Range of Motion
Respiratory: No Dyspnea
GI: Non-distended
Extremities: No Clubbing, No Cyanosis and No Edema
Psych: Unremarkable
Extended Neurological Exam
Mood & Affect: Mood Unremarkable and Affect Unremarkable
Attention Span & Concentration: Awake, Alert and Interactive
Memory: Unremarkable (AAOx3)
Tremor: Hand Tremor Absent and Head Tremor Absent
Involuntary Movement: None
Speech: Quantity Unremarkable, Rate of Production Unremarkable and Dysarthric
Cranial Nerve II: Left Eye: Pupillary Reactivity Unremarkable, Pupillary Size Unremarkable and Visual Rhodes Intact
Cranial Nerve II: Right Eye: Pupillary Reactivity Unremarkable, Pupillary Size Unremarkable and Visual Rhodes Intact
Cranial Nerves III, IV, : Extraocular Movement: Extraocular Movement Full in all Directions
Cranial Nerve V: Facial Sensation: Intact to Light Touch
Cranial Nerve VII: Facial Symmetry: Normal Facial Symmetry
Cranial Nerve VIII: Hearing: Unremarkable Hearing to Normal Conversational Volume
Cranial Nerves IX, X: Palate Movement: Palate Elevation Symmetric
Cranial Nerve XI: Shoulder Shrug: Unremarkable
Cranial Nerve XII: Tongue Protusion: Midline
Muscle Strength, Overall: Full Throughout
Muscle Bulk & Tone: Bulk Unremarkable and Tone Unremarkable
Pronator Drift: Drift in Right Upper Extremity (very slight) and Drift in Right Lower Extremity
Coordination: Other (LUE satellites around right); Negative [id number] Testing Unremarkable (ataxia RUE)
Babinski Sign: Absent Bilaterally
Modified Yancey Score (MRS)
-
Modified Yancey Scale (mRS): Slight disability. Able to look after own affairs.
Score: 2
Data Reviewed
-
CT Head: Report Reviewed and Image Reviewed
MRI Head: Report Reviewed and Image Reviewed
MRA Head: Report Reviewed and Image Reviewed
MRA Neck: Report Reviewed and Image Reviewed
Echocardiogram: Report Reviewed
Labs: Report Reviewed
Lipid Profile: Report Reviewed
HgbA1C: Report Reviewed
Reviewed with: Physician and Patient
NIH Stroke Score
Subsequent NIH Scale
Date of Subsequent NIH Scale: 10/08/23
Time of Subsequent NIH Scale: 08:15
NIH Stroke Score
Level of Consciousness: 0 - Alert
LOC Questions: 0-Answers both correctly
LOC Commands: 0-Performs both correctly
Best Horizontal Gaze: 0-Normal
Visual Rhodes: 0=Normal, no visual loss
Facial Palsy: 0=Normal, symmetrical
Motor - Right Arm: 1=Drift < 10 seconds
Motor - Left Arm: 0=No drift 10 seconds
Motor - Right Le-Drift < 5 seconds
Motor - Left Le-No drift 5 seconds
Limb Ataxia: 1-Present in one limb
Sensation: 0-Normal
Best Language: 0-No aphasia
Dysarthria: 1-Mild slurring
Extinction and Inattention: 0-No abnormality
Total Score:: 4
Modified Yancey (mRS) Score
Modified Yancey Scale (mRS): Slight disability. Able to look after own affairs.
Score: 2
Medications
-
Active Medications
Generic Name Dose Route Start Last Admin
Trade Name Freq PRN Reason Stop Dose Admin
Acetaminophen 650 mg 10/06/23 22:00
Acetaminophen 650 Mg Rectal Suppository RECTAL 11/03/23 21:59
Q4HPRN PRN
RAMOS, mild pain, or temp >100.4F
Acetaminophen 650 mg 10/06/23 22:00
Acetaminophen 325 Mg Tablet PO 11/03/23 21:59
Q4HPRN PRN
RAMOS, mild pain, or temp >100.4F
Aspirin 81 mg 10/07/23 08:00 10/07/23 08:00
Aspirin 81 Mg Chewable Tablet PO 11/04/23 07:59 81 mg
DAILY FABY Administration
Atorvastatin Calcium 80 mg 10/07/23 18:00 10/07/23 17:19
Atorvastatin (Lipitor) 80 Mg Tablet PO 11/04/23 17:59 80 mg
QPM FABY Administration
Calcium/Vitamin D 1,000 mg 10/07/23 22:00 10/07/23 20:26
Calcium Carbonate 500 Mg/Vitamin D 5 Mcg (200 Units) Tablet PO 11/04/23 21:59 1,000 mg
HS FABY Administration
Clopidogrel Bisulfate 75 mg 10/07/23 08:00 10/07/23 08:00
Clopidogrel 75 Mg Tablet PO 11/04/23 07:59 75 mg
DAILY FABY Administration
Dextrose 12.5 grams 10/07/23 10:18
Dextrose 50% (0.5 Grams/Ml) 50 Ml Syringe IV 11/04/23 10:17
[id number] PRN
hypoglycemia
Protocol
Glucagon 1 mg 10/07/23 10:18
Glucagon 1 Mg Vial IM 11/04/23 10:17
PRN PRN
hypoglycemia
Protocol
Hydralazine HCl 10 mg 10/08/23 07:46
Hydralazine 20 Mg/Ml Vial IV 11/05/23 07:45
Q4HPRN PRN
SBP>130
Insulin Aspart 0 units 10/07/23 11:30 10/07/23 17:18
Insulin Aspart Low Resistance 300 Units/3 Ml Pen.Injctr SC 11/04/23 11:29 Not Given
AC FABY
Protocol
Latanoprost 0 drop 10/06/23 22:00 10/07/23 20:33
Latanoprost 0.005% (Ophthalmic Solution) 2.5 Ml Bottle BOTH EYES 11/03/23 21:59 1 drop
HS FABY Administration
Losartan Potassium 50 mg 10/08/23 22:00
Losartan 25 Mg Tablet PO 11/05/23 21:59
HS FABY
Melatonin 5 mg 10/07/23 22:00 10/07/23 20:27
Melatonin 5 Mg Tablet PO 11/04/23 21:59 5 mg
HS FABY Administration
Metformin HCl 500 mg 10/07/23 17:00 10/07/23 17:19
Metformin 500 Mg Regular Release Tablet PO 11/04/23 16:59 500 mg
BID@0800,1700 FABY Administration
Propranolol HCl 120 mg 10/06/23 22:00 10/07/23 20:28
Propranolol Extended Release 120 Mg Capsule (24hr) PO 11/03/23 21:59 120 mg
HS FABY Administration
Sodium Chloride 0 flush 10/06/23 18:00
Sodium Chloride 0.9% (Flush) Syringe IV 11/03/23 17:59
PER PROTOCOL FABY
Home Medications
Medication Instructions Recorded
calcium citrate 315 mg 1,200 mg PO HS Supplement 04/22/17
calcium-vitamin D3 6.25 mcg (250
unit) tablet (Citracal + Vitamin D
Maximum)
multivitamin with folic acid 400 1 tab PO Q48H Supplement 04/22/17
mcg tablet (Tab-A-Bryant)
aspirin 325 mg tablet,delayed 650 mg PO DAILY PRN mild pain 10/06/23
release
latanoprost 0.005 % eye drops 1 drp BOTH EYES HS Eye Condition 10/06/23
prochlorperazine maleate 10 mg 10 mg PO TID PRN nausea 10/06/23
tablet
propranolol 120 mg capsule,24 120 mg PO HS Blood Pressure 10/06/23
hr,extended release

Documented by User: Rell Lennon MD 10/08/23 11:33
Modified Yancey Score (MRS)
-
Score: 2
NIH Stroke Score
NIH Stroke Score
Total Score:: 4
Modified Victor Manuel (mRS) Score
Score: 2
--- NOTE | 2023-10-08 09:45 | PTCARENOTE ---
Diabetes Education- A1C 7%. Not a new diagnosis, was told to cut down on eating sweets, not monitoring BS. Discussed effects of CHO on BS, and importance to watch portion sizes, to include protein when with eat meal/snack. Briefly discussed foods
which are CHO and protein. Provided with and instructions given on Contour Next EZ glucometer. Aware of proper set up, testing sites and expected results. Testing pattern and expected results as noted in take home education booklet. Good return
demonstration with result of 112 mg/dl, pre breakfast. She did have some strength/dexterity issues with her r. hand but adapted well, using her left hand. Information on outpt DSME classes given. Will need RX at discharge for test strips/lancets for
the Contour Next EZ, testing 2x/day.
[2023-10-08] MEDS: APRESOLINE 10 MG IV ×2 (09:52→15:15)
--- NOTE | 2023-10-08 10:15 | W.PN.HOSP.TC ---
Today's Communication/Plan
-
Monitor BP
Adjusted meds
Neuro recs
Assessment / Plan
Assessment / Plan
# Acute/subacute CVA secondary to untreated hypertension
-CT head shows 2 small foci of suspect ischemic left dominant left internal capsule, age-indeterminate but potentially acute/subacute
-Aspirin and Plavix for 21 days then asprin alone
-MR brain with 9 mm acute left thalamic infarct. No associated mass effect.Tiny foci of susceptibility, consistent with hemosiderin as a result of remote microhemorrhage, which may be seen in hemorrhagic lacunar infarct or amyloid angiopathy.
-MRA head/neck-No significant carotid plaque formation or hemodynamically significant stenosis, bilaterally.
-TC at 238 with elevated LDL-Started on statin
-A1C at 7 and start metformin.
-Start atorvastatin 40 mg
-s/p Permissive hypertension and BP trended down
-ECHO noted.
-Neurology recs-?MRI finding and driving.
-PT/OT/speech therapy
# Hypertensive emergency
-Systolic blood pressure of 230/114
-EKG shows normal sinus rhythm, LVH
-Continue propranolol
-Started on losartan 25mg and increased further to 50mg
-BP elevated.
#Type 2 diabetes
-A1C of 7.
-ADA, Iss and accuchecks
-start metformin 500mg BID.
-Undergoing diabetic education. Contour Next glucometer provided.
History of migraines
History of vertigo
Osteoarthritis
Osteoporosis
-Continue calcium, vitamin D
ADHD
Alopecia
History of hepatitis C status posttreatment
Remote tobacco use
Full code
DVT prophylaxis�SCDs
Diabetic diet
PT/OT-OP therapy.
Anticipated Discharge: Within 24 hours
Subjective/Interval History
-
Date of Service: October 08, 2023
BP elevated
undergoing diabetic education
states R hand weakness is improving
Objective Data
-
Vital Signs:
Vital Signs
Temp Pulse Resp BP Pulse Ox
97.6 F 50 16 184/92 98
10/08/23 07:00 10/08/23 09:52 10/08/23 07:00 10/08/23 09:52 10/08/23 07:00
I&O
10/07/23 10/08/23 10/09/23
06:59 06:59 06:59
Intake Total 480 / 480 720 / 720
Balance 480 / 480 720 / 720
Physical Exam
-
General: Well Developed and No Apparent Distress
HEENT: Normocephalic, Atraumatic and Moist Mucous Membranes
Respiratory: Clear to Auscultation
Cardiac: Regular Rhythm and S1/S2; Negative Murmur, Rub or Gallop
GI: Soft, Nontender, Nondistended and Normal Bowel Sounds; Negative Organomegaly
Rectal: Deferred by Provider
Musculoskeletal: No Clubbing, No Cyanosis and No Edema
Skin: Negative Rash
Neuro: Awake, Alert, Oriented, AO x 3, Nonfocal/Grossly Intact and Other (R hand weakness. Arthritic changes b/l hands noted)
Psych: Calm
Data Reviewed
-
Total Time Spent with Patient (in minutes): 54
[2023-10-08 12:19] LABS: Glucose - Point of Care 123 mg/dl (70-99)
--- NOTE | 2023-10-08 14:25 | PTOTSP ---
Speech Therapy Assessment
Expressive and receptive language deemed within functional limits.
Comprehensive assessment in next level of care is recommended to ensure more in-depth evaluation looking at high level processing.
ST will continue to follow for swallowing while in acute care.
[2023-10-08 17:23] LABS: Glucose - Point of Care 139 mg/dl (70-99)
[2023-10-08] MEDS: LIPITOR 80 MG PO (17:40)
[2023-10-08] MEDS: XALATAN OPHTHALMIC SOLUTION 1 DROP BOTH EYES (21:11)
[2023-10-08] MEDS: INDERAL LA 120 MG PO (21:11)
[2023-10-08] MEDS: MELATONIN 5 MG PO (21:12)
[2023-10-08] MEDS: OSCAL 500 + D 1000 MG PO (21:12)
[2023-10-08] MEDS: COZAAR 50 MG PO (21:13)
[2023-10-08 21:36] LABS: Glucose - Point of Care 99 mg/dl (70-99)
[2023-10-09] VITALS (7 sets, daily range): BP systolic 147–212; BP diastolic 69–97; PULSE 63–64; O2SAT 94–99
[2023-10-09] MEDS: APRESOLINE 10 MG IV ×3 (03:09→11:53)
--- NOTE | 2023-10-09 07:32 | CM ---
Addendum entered by Liseth Mirza 10/09/23 09:54:
patient will need op pt/ot and speech therapies.will need script for doctor.
Original Note:
met with patient at bedside.patient lives with her in house with 1 [address],her bed and bath is on the second level,she amb i,dr crowley is her pcp and she is not sure of her pharmacy.patient has had a vn in remote past and has neer been to ip
rehab .
patient is adm with acute/subacute cva.she was eval by therapy who recommends outpatient therapy.
Plan discharge to home with op physical therapy.
[2023-10-09] MEDS: GLUCOPHAGE 500 MG PO ×2 (07:35→16:38)
[2023-10-09] MEDS: LOW STRENGTH ASPIRIN 81 MG PO (07:35)
[2023-10-09] MEDS: PLAVIX 75 MG PO (07:35)
[2023-10-09 08:48] LABS: Glucose - Point of Care 102 mg/dl (70-99)
[2023-10-09] MEDS: NOVOLOG FLEXPEN-LOW RESISTANCE SC ×2 (08:50→17:38)
--- NOTE | 2023-10-09 10:15 | W.PN.HOSP.TC ---
Today's Communication/Plan
-
Monitor BP
Rehab repeat Eval
Assessment / Plan
Assessment / Plan
# Acute/subacute CVA secondary to untreated hypertension
-CT head shows 2 small foci of suspect ischemic left dominant left internal capsule, age-indeterminate but potentially acute/subacute
-Aspirin and Plavix for 21 days then aspirin alone
-MR brain with 9 mm acute left thalamic infarct. No associated mass effect.Tiny foci of susceptibility, consistent with hemosiderin as a result of remote microhemorrhage, which may be seen in hemorrhagic lacunar infarct or amyloid angiopathy.
-MRA head/neck-No significant carotid plaque formation or hemodynamically significant stenosis, bilaterally.
-TC at 238 with elevated LDL-Started on statin
-A1C at 7 and started metformin 500mg BID .
-Started atorvastatin 80 mg
-s/p Permissive hypertension.
-ECHO noted.
-Aggressive BP control-BP/Cozaar
-Neurology recs-
-PT/OT/speech therapy-OP PT vs SNF?
# Hypertensive emergency
-Systolic blood pressure of 230/114
-EKG shows normal sinus rhythm, LVH
-Continue propranolol
-Started on losartan 25mg and increased further to 50mg
-May need further adjustment
#Type 2 diabetes
-A1C of 7.
-ADA, Iss and accuchecks
-start metformin 500mg BID.
-Undergoing diabetic education. Contour Next glucometer provided.
-POC am 102
History of migraines
History of vertigo
Osteoarthritis
Osteoporosis
-Continue calcium, vitamin D
ADHD
Alopecia
History of hepatitis C status posttreatment
Remote tobacco use
Full code
DVT prophylaxis�SCDs
Diabetic diet
PT/OT-final recs. May require SNF.
Anticipated Discharge: Today
Subjective/Interval History
-
Date of Service: October 09, 2023
No overnight events
States numbness from yesterday has improved on R side
Objective Data
-
Vital Signs:
Vital Signs
Temp Pulse Resp BP Pulse Ox
98.1 F 60 18 153/83 93
10/09/23 07:05 10/09/23 07:33 10/09/23 07:05 10/09/23 07:33 10/09/23 07:05
I&O
10/08/23 10/09/23 10/10/23
06:59 06:59 06:59
Intake Total 720 / 720 1200 / 1200
Balance 720 / 720 1200 / 1200
Physical Exam
-
General: Well Developed and No Apparent Distress
HEENT: Normocephalic, Atraumatic and Moist Mucous Membranes
Respiratory: Clear to Auscultation
Cardiac: Regular Rhythm and S1/S2; Negative Murmur, Rub or Gallop
GI: Soft, Nontender, Nondistended and Normal Bowel Sounds; Negative Organomegaly
Rectal: Deferred by Provider
Musculoskeletal: No Clubbing, No Cyanosis and No Edema
Skin: Negative Rash
Neuro: Awake, Alert, Oriented, AO x 3, Nonfocal/Grossly Intact and Other (R hand weakness. Arthritic changes b/l hands noted)
Psych: Calm
[2023-10-09 12:27] LABS: Glucose - Point of Care 183 mg/dl (70-99)
[2023-10-09] MEDS: NOVOLOG FLEXPEN-LOW RESISTANCE 1 UNITS SC (12:40)
--- NOTE | 2023-10-09 12:44 | W.DCSUMMARY ---
Discharge Summary
Discharge Data
Date of Admission: 10/06/23
Date of Discharge: 10/09/23
-
Pending Results: No
Hospital Course
73 yo female past medical history of migraine, will monitor, Ortho arthritis, ADHD was presented with right upper and lower extremity weakness. CT head shows 2 small foci of suspect ischemic left dominant left internal capsule, age-indeterminate but
potentially acute/subacute. Aspirin and Plavix for 21 days then aspirin alone. MR brain with 9 mm acute left thalamic infarct. No associated mass effect.Tiny foci of susceptibility, consistent with hemosiderin as a result of remote microhemorrhage,
which may be seen in hemorrhagic lacunar infarct or amyloid angiopathy.
MRA head/neck-No significant carotid plaque formation or hemodynamically significant stenosis, bilaterally. With elevated LDL-Started on statin. A1C at 7 and started metformin 500mg BID. Uncontrolled blood pressure and started losartan 25 mg with
outpatient primary doctor follow-up next week for further management. Eval by PT and OT recommend outpatient follow-up. No events on telemetry noted. Underwent echocardiogram. Will be discharged home with follow-up with primary doctor and
nephrology. Patient understand not to drive until seen by neurology.
Discharge Plan
-
Patient Disposition: Home with Home Care
Discharge Diagnosis/Procedures: Acute stroke
Uncontrolled hypertension
New onset diabetes mellitus
Hyperlipidemia
Condition: Fair
Diet: Low Cholesterol and Diabetic, Carb Controlled
Activity: With assistance and As tolerated
Driving Restrictions: Not until seen by your Dr
Other Services: VN and PT
Activity Restrictions/Additional Instructions:
aspirin and Plavix for 21 days then stop Plavix and continue on aspirin
Recommend �not drive until seen in the neurology clinic in 4 to 6 weeks�
Referrals:
Valerie Golden MD [Family Provider] - in less than 1 week
Joe Franco MD [Active] - in one to two months
Prescriptions:
New
metformin 500 mg Tablet
500 mg PO BID@0800,1700 30 Days Qty: 60 0RF
atorvastatin 80 mg Tablet
80 mg PO QPM 30 Days Qty: 30 0RF
clopidogrel 75 mg Tablet
75 mg PO DAILY 18 Days Qty: 18 0RF
aspirin [Children's Aspirin] 81 mg Tablet,Chewable
81 mg PO DAILY 30 Days Qty: 30 0RF
losartan 25 mg tablet
75 mg PO DAILY 30 Days Qty: 90 0RF
(DME) Contour Next Test Strips Strip
Qty: 100 0RF
Rx Instructions:
TID
(DME) lancets [Color Lancets] 21 gauge Misc
Qty: 100 0RF
Rx Instructions:
TID
Continued
calcium citrate-vitamin D3 [Citracal + D Maximum] 1 EACH tablet
1,200 mg PO HS
multivitamin with folic acid [Tab-A-Bryant] 1 TABLET tablet
1 tab PO Q48H
latanoprost 0.005 % drops
1 drp BOTH EYES HS
prochlorperazine maleate 10 mg tablet
10 mg PO TID PRN (Reason: nausea)
propranolol 120 mg capsule,extended release 24 hr
120 mg PO HS
Discontinued
aspirin 325 MG tablet,delayed release (DR/EC)
650 mg PO DAILY PRN (Reason: mild pain)
Discharge Orders:
Discharge Patient (As Directed); Ordered 10/09/23
Ordered By: John King
Discharge Date and Time
Discharge Date/Time: 10/09/23 17:31
[2023-10-09] MEDS: COZAAR 25 MG PO (13:38)
== END 2023-10-09 17:31 | disposition home health service (06) | DRG 304 ==
LOC: 3 WEST ACU 17:47
PROVIDERS: Emergency Medicine; ADMITTING PHYSICIAN Hospitalist; ATTENDING PHYSICIAN Hospitalist; CONSULT PHYSICIAN Psychiatry & Neurology Neurology; EMERGENCY PHYSICIAN Emergency Medicine; FAMILY PHYSICIAN Internal Medicine
DX: I16.0 Hypertensive urgency (principal); I63.9 Cerebral infarction, unspecified; R29.703 NIHSS score 3; I10 Essential (primary) hypertension; E11.9 Type 2 diabetes mellitus without complications; M81.0 Age-related osteoporosis without current pathological fracture; F90.9 Attention-deficit hyperactivity disorder, unspecified type; Z87.891 Personal history of nicotine dependence
CPT/HCPCS: 70450; 70544; 70548; 70551; 80048; 80053; 80061; 82962; 83036; 85025; 92523; 92610; 93005; 93306; 97116; 97163; 97167; 97530; 97535; 99285; A9585

== ENCOUNTER 2023-12-25 11:58 | Outpatient (RCR) | payer OTHER, SELFPAY | END 2023-12-25 23:59 | disposition home or self-care (01) | LOC: ROT 11:58 | PROVIDERS: ATTENDING PHYSICIAN Nurse Practitioner Adult Health; FAMILY PHYSICIAN Internal Medicine | DX: I69.328 Other speech and language deficits following cerebral infarction (principal); I69.318 Other symptoms and signs involving cognitive functions following cerebral infarction; Z73.6 Limitation of activities due to disability | CPT/HCPCS: 96125; 97110; 97112; 97116; 97163; 97167; 97530 ==

== ENCOUNTER 2024-01-21 11:47 | Outpatient (RCR) | payer OTHER, SELFPAY | END 2024-01-21 23:59 | disposition home or self-care (01) | LOC: ROT 11:47 | PROVIDERS: ATTENDING PHYSICIAN Nurse Practitioner Adult Health; FAMILY PHYSICIAN Internal Medicine | DX: I63.9 Cerebral infarction, unspecified (principal); Z73.6 Limitation of activities due to disability | CPT/HCPCS: 97110; 97112; 97116; 97530 ==

== ENCOUNTER 2024-02-18 12:03 | Outpatient (RCR) | payer OTHER, SELFPAY | END 2024-02-22 06:26 | disposition home or self-care (01) | LOC: ROT 12:03 | PROVIDERS: ATTENDING PHYSICIAN Nurse Practitioner Adult Health; FAMILY PHYSICIAN Internal Medicine | DX: I69.398 Other sequelae of cerebral infarction (principal); R26.2 Difficulty in walking, not elsewhere classified; R53.83 Other fatigue | CPT/HCPCS: 97110; 97112; 97116; 97530 ==